=== PATIENT | male | born 1985 | race Caucasian/White ===

== ENCOUNTER 2019-09-28 08:19 | Emergency (ER) | payer SELFPAY ==
[~2019-09-28] VITALS: Ht 167.6 cm; Wt 54.5 kg
[~2019-09-28 08:19] MED LIST: HYDR-3164 PO
[2019-09-28 09:43] VITALS: BP 116/71
--- NOTE | 2019-09-28 10:08 | PHYS DOC ---
Past Medical History Past Medical History: No Pertinent History Past Surgical History: Other Additional Past Surgical Histo: right hand surgery Smoking Status: Current Every Day Smoker Alcohol Use: Occasionally Drug Use: None Adult General Chief Complaint Chief Complaint: GROIN PAIN HPI HPI Patient is a 34 year old male who presents with left testicular pain this been ongoing for 2 weeks and worsening. He states is a constant pain. The patient also states his been having some burning when he uses the bathroom. Denies fever or any other symptoms. Complete ROS were reviewed and found to be within normal limits, except as documented in the HPI Allergies Allergies Allergies Coded Allergies Type Severity Reaction Last Updated Verified acetaminophen Allergy Mild Rash 12/28/15 Yes codeine Allergy Mild Rash 12/28/15 Yes Physical Exam Physical Exam Constitutional: Well developed, well nourished, no acute distress, non-toxic appearance. [] HENT: Normocephalic, atraumatic, bilateral external ears normal, oropharynx moist, no oral exudates, nose normal. [] Neurologic: Alert and oriented X 3, normal motor function, normal sensory function, no focal deficits noted. [] Psychologic: Affect normal, judgement normal, mood normal. [] Current Patient Data Vital Signs Vital Signs Date Time Temp Pulse Resp B/P (MAP) Pulse Ox O2 Delivery O2 Flow Rate FiO2 09/28/19 09:43 98.1 76 16 116/71 (86) 97 Room Air 98.1 Lab Values Laboratory Tests Test 09/28/19 10:40 Urine Collection Type Unknown Urine Color Yellow Urine Clarity Clear Urine pH 7.5 (<5.0-8.0) Urine Specific [place] 1.020 (1.000-1.030) Urine Protein Negative mg/dL (NEG-TRACE) Urine Glucose (UA) Negative mg/dL (NEG) Urine Ketones (Stick) Negative mg/dL (NEG) Urine Blood Negative (NEG) Urine Nitrite Negative (NEG) Urine Bilirubin Negative (NEG) Urine Urobilinogen Dipstick 1.0 mg/dL (0.2 mg/dL) Urine Leukocyte Esterase Negative (NEG) Urine RBC 0 /HPF (0-2) Urine WBC Occ /HPF (0-4) Urine Squamous Epithelial Cells Few /LPF Urine Bacteria Few /HPF (0-FEW) Urine Mucus Marked /LPF EKG EKG [] Radiology/Procedures Radiology/Procedures [][facility] [address] [place] [address] IMAGING REPORT Signed PATIENT: EDMUND LINDSEY ACCOUNT: [id number] : 1985 LOCATION: ER AGE: 34 SEX: M EXAM STATUS: REG ER ORD. PHYSICIAN: MEREDITH AMOS APRN REASON: L Testicular pain PROCEDURE: TESTICULAR/SCROTUM DUPLEX SONOGRAPHY OF THE TESTICLES AND SCROTUM INDICATIONS: Left testicular pain. FINDINGS: Duplex sonography of the scrotum and both testicles was performed including grayscale evaluation and color flow and waveform spectral analysis. FINDINGS: The longitudinal and AP and transverse dimensions of the right testicle are 5.1 cm and 1.8 cm and 3.0 cm respectively. The longitudinal and AP and transverse dimensions of the left testicle are 4.6 cm and 2.2 cm and 2.9 cm respectively. Small echogenic microcalcifications are seen bilaterally. No testicular mass is seen on either side. Symmetric color Doppler flow is seen and therefore no testicular torsion is evident. No hydrocele is seen on either side. The epididymis on both sides appears normal. Sonography of the left groin was performed in the area of pain and no focal hernia is seen sonographically. Small varicocele is seen on the left side. IMPRESSION: No testicular mass or testicular torsion. Varicocele on the left side. Bilateral testicular microlithiasis. See below. Risk factors that need follow-up of patients with testicular microlithiasis which includes monthly self-examination testicular exam and annual screening testicular sonography up to the age of 55. If no risk factors with testicular microlithiasis, then no further follow-up is recommended. Previous germ cell tumor History of maldescent History of orchidopexy Atrophy less than 12 ml volume (the normal mean testicular volume is estimated at 18 mL) History of germ cell tumor in first degree relative (standardized incidence ratios for familial risk are 3.8 - fold with a father and 7.6 - fold when a brother have testicular cancer) Cent J Urol. 2018; 71(3): 310-314 Electronically signed by: Ciera Solitario MD (09/28/2019 11:13 AM) [facility] [place] [facility] [place]CTATED and SIGNED BY: CIERA SOLITARIO MD DATE: 09/28/19 1113 Course & Med Decision Making Course & Med Decision Making Pertinent Labs and Imaging studies reviewed. (See chart for details) I will order a testicular ultrasound, urine, gonorrhea and Chlamydia testing. Ultrasound is unremarkable for acute changes. Dragon Disclaimer Dragon Disclaimer This electronic medical record was generated, in whole or in part, using a voice recognition dictation system. Departure Departure Impression: Primary Impression: Groin pain Disposition: HOME, SELF-CARE Condition: STABLE Referrals: NO PCP (PCP) Patient Instructions: Groin Strain Additional Instructions: Thank you for visiting [facility]. We appreciate you trusting us with your care. If any additional problems come up don't hesitate to return to visit us. Please follow up with your primary care provider so they can plan additional care if needed and know about the problem that you had. If symptoms worsen come back to the Emergency Department. Any concerning symptoms that start such as chest pain, shortness of air, weakness or numbness on one side of the body, running high fevers or any other concerning symptoms return to the ER. Problem Qualifiers Primary Impression: Groin pain Laterality: left Qualified Codes: R10.32 - Left lower quadrant pain MEREDITH AMOS APRN Sep 28, 2019 10:08
[2019-09-28 10:56] LABS: BILIRUBIN,URINE NEGATIVE (NEG); CLARITY,URINE CLEAR; COLOR,URINE YELLOW; NITRITE,URINE NEGATIVE (NEG); PH,URINE 7.5 (<5.0-8.0); PROTEIN,URINE NEGATIVE (NEG-TRACE)
[2019-09-28 11:01] LABS: SQUAMOUS EPITHELIAL CELL,UR FEW /LPF
[2019-09-28 11:02] LABS: BACTERIA,URINE FEW /HPF (0-FEW); RBC,URINE 0 /HPF (0-2); WBC,URINE OCC /HPF (0-4)
--- NOTE | 2019-09-28 11:17 | RAD ---
DUPLEX SONOGRAPHY OF THE TESTICLES AND SCROTUM INDICATIONS: Left testicular pain. FINDINGS: Duplex sonography of the scrotum and both testicles was performed including grayscale evaluation and color flow and waveform spectral analysis. FINDINGS: The longitudinal and AP and transverse dimensions of the right testicle are 5.1 cm and 1.8 cm and 3.0 cm respectively. The longitudinal and AP and transverse dimensions of the left testicle are 4.6 cm and 2.2 cm and 2.9 cm respectively. Small echogenic microcalcifications are seen bilaterally. No testicular mass is seen on either side. Symmetric color Doppler flow is seen and therefore no testicular torsion is evident. No hydrocele is seen on either side. The epididymis on both sides appears normal. Sonography of the left groin was performed in the area of pain and no focal hernia is seen sonographically. Small varicocele is seen on the left side. IMPRESSION: No testicular mass or testicular torsion. Varicocele on the left side. Bilateral testicular microlithiasis. See below. Risk factors that need follow-up of patients with testicular microlithiasis which includes monthly self-examination testicular exam and annual screening testicular sonography up to the age of 55. If no risk factors with testicular microlithiasis, then no further follow-up is recommended. Previous germ cell tumor History of maldescent History of orchidopexy Atrophy less than 12 ml volume (the normal mean testicular volume is estimated at 18 mL) History of germ cell tumor in first degree relative (standardized incidence ratios for familial risk are 3.8 - fold with a father and 7.6 - fold when a brother have testicular cancer) Cent J Urol. 2018; 71(3): 310-314 Electronically signed by: Nabeel Solitario MD (09/28/2019 11:13 AM) [facility] [place]
== END 2019-09-28 12:30 | disposition home or self-care (01) ==
LOC: ER 08:19
DX: R10.32 Left lower quadrant pain (principal); I86.1 Scrotal varices; F17.200 Nicotine dependence, unspecified, uncomplicated; Z88.5 Allergy status to narcotic agent; Z88.6 Allergy status to analgesic agent
CPT/HCPCS: 76870; 81001; 87491; 87591; 99284-25

== ENCOUNTER 2021-01-28 06:48 | Emergency (ER) | payer SELFPAY ==
[~2021-01-28] VITALS: Ht 167.6 cm; Wt 59.1 kg
[2021-01-28] MEDS ORDERED: FLUORESCEIN OPHTH TEST STRIP. OS ONE (08:00)
[2021-01-28] MEDS ORDERED: TETRACAINE 0.5% OPHTH SOLUTION 4ML BOTTLE. OS ONE (08:00)
[2021-01-28] MEDS ORDERED: ERYTHROMYCIN 0.5% OPHTH OINTMENT 1GM TUBE. OS ONE (08:00)
--- NOTE | 2021-01-28 08:10 | PHYS DOC ---
Past Medical History Past Medical History: No Pertinent History Past Surgical History: Other Additional Past Surgical Histo: right hand Smoking Status: Current Every Day Smoker Alcohol Use: Occasionally Drug Use: Marijuana General Adult EDM: Chief Complaint: EYE PROBLEMS HPI: HPI: Patient is a 35 year old male presenting with eye pain and back pain. Patient says he hit a branch that scratched his left eye, then he slipped and fell on a boulder landing on his back. He reports hitting his head. Patient reports that his girlfriend noted him "going in and out" and being a little confused afterwards. He cannot recall if he lost consciousness. Denies nausea or vomiting. He reports pain and blurriness in his left eye, denies bleeding. He also complains of low back pain that is sharp located midline and to the left. He also complains of weakness in his left leg and has pain with walking. Denies numbness or tingling in his lower extremities. He is concerned due to his history of vertebral fractures from a work injury. He took 2 ibuprofen and used OTC eye drops before arriving. Review of Systems: Review of Systems: Constitutional: Denies fever or chills Eyes: Reports pain and redness in left eye. Reports foreign body sensation in left eye HENT: Reports nasal congestion. Denies sore throat Respiratory: Denies cough or shortness of breath Cardiovascular: Denies chest pain or palpitations GI: Denies abdominal pain, nausea, or vomiting : Denies dysuria or hematuria Musculoskeletal: Reports low back pain and left upper leg pain Integument: Has minor scrapes and abrasions on head and left arm. Neurologic: Reports headache, weakness in left leg. Denies numbness, tingling or sensory changes. Complete systems were reviewed and found to be within normal limits, except as documented in this note. Heart Score: C/O Chest Pain: N/A Current Medications: Current Medications Medications (Trade) Dose Ordered Sig/Xin Start Time Stop Time Status Last Admin Dose Admin Erythromycin (Romycin) 0.25 inch 1X ONCE 01/28/21 08:00 01/28/21 08:01 DC Fluorescein Sodium (Ful-Nicky) 1 strip 1X ONCE 01/28/21 08:00 01/28/21 08:01 DC Tetracaine HCl (Tetracaine) 2 drop 1X ONCE 01/28/21 08:00 01/28/21 08:01 DC Allergies: Allergies: Allergies Coded Allergies Type Severity Reaction Last Updated Verified acetaminophen Allergy Intermediate Rash 01/28/21 Yes codeine Allergy Intermediate Rash 01/28/21 Yes Physical Exam: PE: Constitutional: Well developed, thin, no acute distress HENT: Normocephalic, atraumatic Eyes: PERRL, EOMI, clear watery discharge and conjunctival redness in left eye. Fluorescein uptake noted at 11 o clock position in the left eye, eyelid everted with no foreign body, negative Irish sign. Neck: Normal range of motion, no tenderness, supple Lungs & Thorax: No respiratory distress, equal chest rise and fall Abdomen: Soft, no tenderness; pelvis stable and nontender Skin: Warm, dry, no erythema, no rash Back: Midline and left sided paraverterbral tenderness to palpation in lumboscaral area, no CVA tenderness Extremities: Left lateral hip and thigh pain, ROM intact, no edema. Neurologic: Alert and oriented X 3, normal motor function, normal sensory function, no focal deficits noted Psychologic: Affect normal, appears somnolent Current Patient Data: Vital Signs: Vital Signs Date Time Temp Pulse Resp B/P (MAP) Pulse Ox O2 Delivery O2 Flow Rate FiO2 01/28/21 07:38 98.6 90 16 111/66 98 Room Air 98.6 EKG: EKG: [] Radiology/Procedures: Radiology/Procedures: PROCEDURE: LUMBAR SPINE 2-3V XR LUMBAR SPINE 2-3V History: Fall, pain. Comparison: None. Technique: 3 views of the lumbar spine. Findings: There are 5 non-rib bearing lumbar vertebral segments. There is approximately 20 percent anterior wedging of L1. Multiphasic coronal curvature. No spondylolisthesis. No destructive osseous lesions are seen. No significant facet disease. Disc spaces are preserved. Sacroiliac joints are unremarkable. Soft tissues are unremarkable. IMPRESSION: 1. Anterior wedging at L1 to represent sequela of age-indeterminate compression injury versus developmental or chronic degenerative change. Electronically signed by: Olayinka Avendano MD (01/28/2021 8:58 AM) [facility] PROCEDURE: CT HEAD WO CONTRAST CT HEAD/BRAIN WO History: Head contusion, somnolent. Comparison: None. Technique: Noncontrast CT imaging was performed of the head. Findings: No intracranial hemorrhage. No mass effect. No hydrocephalus. No evidence of te rritorial infarction. Imaged orbits are unremarkable. Moderate mucoperiosteal thickening of the bilateral ethmoid, maxillary and sphenoid sinuses. No acute calvarial fracture. Impression: 1. No acute intracranial abnormality. 2. Bilateral sinusitis. ----- Exposure: One or more of the following individualized dose reduction techniques were utilized for this examination: 1. Automated exposure control 2. Adjustment of the mA and/or kV according to patient size 3. Use of iterative reconstruction technique. Electronically signed by: Olayinka Avendano MD (01/28/2021 9:09 AM) [facility] Course & Med Decision Making: Course & Med Decision Making Patient is a 35 year old male presenting with left eye and lower back pain after a fall. He reports getting hit with a tree branch causing eye trauma and then he fell on a boulder hitting his head and . Physical exam showed clear watery discharge and conjunctival redness in left eye, fluorescein uptake at 11 o clock position. Negative Irish sign. Patient given erythromycin eye ointment in the ED. Patient appeared somnolent during the exam. Unclear if due to illicit drug use or due to the head trauma. C-Spine ROM intact. Patient also complained of sharp low back pain and had concerns due to history of vertebral fractures. Symptomatic control initiated with ibuprfen 600mg and orphenadrine and given erythromycin eye ointment. Lumbar X-ray showed anterior wedging at L1 to represent sequela of age- indeterminate compression injury versus developmental or chronic degenerative change. Head CT showed no acute intracranial abnormality. Patient prescribed erythromycin ointment for the corneal abrasion as well as orphenadrine and hydrocodone for pain control. Patient stable for discharge with outpatient follow-up with PCP. Discussed findings and plan with patient, who acknowledges understanding and agreement. Kiera Disclaimer: [place] Disclaimer: This electronic medical record was generated, in whole or in part, using a voice recognition dictation system. Departure Departure Impression: Primary Impression: Back pain Qualified Codes: M54.5 - Low back pain Additional Impression: Corneal abrasion, left Qualified Codes: S05.02XA - Injury of conjunctiva and corneal abrasion without foreign body, left eye, initial encounter Disposition: HOME / SELF CARE / HOMELESS Condition: STABLE Referrals: NO PCP (PCP) NATHAN TIRADO MD Patient Instructions: Back Pain, Adult, [id number], Eye - Corneal Abrasion, [id number] Additional Instructions: May take over the counter Ibuprofen for pain or discomfort. ICE area of discomfort 20 min on then leave off next 20 mins. Repeat several times daily for next few days. Scripts Hydrocodone Bit/Acetaminophen (HYDROCODONE-APAP 5-325 ) 1 Tab Tablet 0.5-1 TAB PO PRN Q6HRS PRN for PAIN, #6 TAB 0 Refills Prov: MEREDITH ARANDA DO 01/28/21 Erythromycin Base (Erythromycin) 1 Gm Oint...g. 0.5 INCH OP QID for 5 Days, #1 MISC Prov: MEREDITH ARANDA DO 01/28/21 Orphenadrine Citrate (ORPHENADRINE CITRATE) 100 Mg Tablet.er 100 MG PO BID PRN for MUSCLE PAIN, #14 TAB Prov: MEREDITH ARANDA DO 01/28/21 MEREDITH ARANDA DO Jan 28, 2021 08:10
[2021-01-28] MEDS ORDERED: IBUPROFEN 200 MG TABLET. PO ONE (08:30)
[2021-01-28] MEDS ORDERED: ORPHENADRINE CITRATE 60 MG/2 ML VIAL. IM ONE (08:30)
--- NOTE | 2021-01-28 09:01 | RAD ---
XR LUMBAR SPINE 2-3V History: Fall, pain. Comparison: None. Technique: 3 views of the lumbar spine. Findings: There are 5 non-rib bearing lumbar vertebral segments. There is approximately 20 percent anterior wedging of L1. Multiphasic coronal curvature. No spondylolisthesis. No destructive osseous lesions are seen. No significant facet disease. Disc spaces are preserved. Sacroiliac joints are unremarkable. Soft tissues are unremarkable. IMPRESSION: 1. Anterior wedging at L1 to represent sequela of age-indeterminate compression injury versus develo pmental or chronic degenerative change. Electronically signed by: Olayinka Avendano MD (01/28/2021 8:58 AM) [facility]
--- NOTE | 2021-01-28 09:11 | RAD ---
CT HEAD/BRAIN WO History: Head contusion, somnolent. Comparison: None. Technique: Noncontrast CT imaging was performed of the head. Findings: No intracranial hemorrhage. No mass effect. No hydrocephalus. No evidence of territorial infarction. Imaged orbits are unremarkable. Moderate mucoperiosteal thickening of the bilateral ethmoid, maxillar y and sphenoid sinuses. No acute calvarial fracture. Impression: 1. No acute intracranial abnormality. 2. Bilateral sinusitis. ----- Exposure: One or more of the following individualized dose reduction techniques were utilized for thi s examination: 1. Automated exposure control 2. Adjustment of the mA and/or kV according to patient size 3. Use of iterative reconstruction technique. Electronically signed by: Olayinka Avendano MD (01/28/2021 9:09 AM) [facility]
[2021-01-28] MEDS ORDERED: ORPH100T PO (09:59)
[2021-01-28] MEDS ORDERED: ERYT1OIN6 OP (09:59)
[2021-01-28] MEDS ORDERED: HYDR-2761 PO (09:59)
[2021-01-28 10:11] VITALS: BP 152/81
== END 2021-01-28 10:10 | disposition home or self-care (01) ==
LOC: ER 06:48
DX: S05.02XA Injury of conjunctiva and corneal abrasion without foreign body, left eye, initial encounter (principal); M54.5 Low back pain; M79.605 Pain in left leg; F17.200 Nicotine dependence, unspecified, uncomplicated; Z88.5 Allergy status to narcotic agent; Z88.6 Allergy status to analgesic agent; W01.198A Fall on same level from slipping, tripping and stumbling with subsequent striking against other object, initial encounter; Y93.89 Activity, other specified; Y92.89 Other specified places as the place of occurrence of the external cause; Y99.8 Other external cause status
CPT/HCPCS: 70450; 72100; 96372; 99284; J2360